=== PATIENT | male | born 1950 | race Caucasian/White ===

== ENCOUNTER → 2020-05-12 | Outpatient (CLI) | payer MEDICARE, OTHER ==
[~2020-05-12] MED LIST: AMLO-150 PO; ASCO100019 PO; ASPI-515 PO; ASPI325T17 PO; CYAN1TAB29 PO; HYDR200T72 PO; HYDR2TAB29 PO; HYDR4TAB48 PO; LISI40TA PO; METF500T17 PO; METH2.5T PO; NIAC1TBM5 PO; OMNIPAQUE 350 MG/ML, 75ML BOTTLE ONE; OXYC-302 PO; OXYC-307 PO; OXYC1TAB7 PO; SAW450CA7 PO; SULI200T2 PO; UBID50TA3 PO; [UNRECOGNIZED DRUG - OTHER] PO; folic acid PO; vitamin b12 PO
== END | disposition home or self-care (01) ==
LOC: CFH 14:58
PROVIDERS: ATTEND Physician Assistant
DX: J84.9 Interstitial pulmonary disease, unspecified (principal); R59.9 Enlarged lymph nodes, unspecified; R93.89 Abnormal findings on diagnostic imaging of other specified body structures; N28.1 Cyst of kidney, acquired
CPT/HCPCS: 71260; Q9967

== ENCOUNTER → 2020-07-01 | Outpatient (CLI) | payer MEDICARE, OTHER ==
[~2020-07-01] MED LIST changes: -OMNIPAQUE 350 MG/ML, 75ML BOTTLE ONE
== END | disposition home or self-care (01) ==
LOC: CVU 12:34
PROVIDERS: ATTEND Internal Medicine
DX: I34.8 Other nonrheumatic mitral valve disorders (principal); J84.9 Interstitial pulmonary disease, unspecified
CPT/HCPCS: 93306

== ENCOUNTER 2021-03-16 13:46 | Outpatient (CLI) | payer MEDICARE, OTHER ==
[~2021-03-16 13:46] MED LIST changes: -ASPI-515 PO; +ASPI-963 PO; -LISI40TA PO; +LISI40TA9 PO; -OXYC-302 PO; -OXYC-307 PO; +OXYC-380 PO; +OXYC1TAB14 PO
== END 2021-03-16 23:59 | disposition home or self-care (01) ==
LOC: CFH 13:46
PROVIDERS: ATTEND Internal Medicine
DX: J92.9 Pleural plaque without asbestos (principal); J84.9 Interstitial pulmonary disease, unspecified; J47.9 Bronchiectasis, uncomplicated; J84.10 Pulmonary fibrosis, unspecified
CPT/HCPCS: 71250